=== PATIENT | female | born 1995 | race Two or more races ===

== ENCOUNTER 2017-09-23 21:41 | Emergency (ER) | payer OTHER ==
[2017-09-23] MEDS ORDERED: diphenhydrAMINE INJ 50 MG/ML VIAL IVP STA (22:49)
[2017-09-23] MEDS ORDERED: SODIUM CHLORIDE 0.9% 1,000 ML IV ONE (22:49)
[2017-09-23] MEDS ORDERED: KETOROLAC 60 MG/2 ML VIAL IVP STA (22:49)
[2017-09-23] MEDS ORDERED: METOCLOPRAMIDE 10 MG/2 ML VIAL IVP STA (22:49)
[2017-09-23 22:52] LABS: BILIRUBIN,URINE NEGATIVE (NEGATIVE); GLUCOSE, URINE (UA) NEGATIVE (NEGATIVE); KETONES,URINE (UA) NEGATIVE (NEGATIVE); LEUKOCYTE ESTERASE, URINE NEGATIVE (NEGATIVE); NITRITE,URINE NEGATIVE (NEGATIVE); OCCULT BLOOD,URINE NEGATIVE (NEGATIVE); PROTEIN,URINE NEGATIVE (NEGATIVE); UROBILINOGEN,URINE 1 (NORMAL) E.U./dL (NORMAL)
[2017-09-23 22:53] LABS: CLARITY,URINE CLEAR (CLEAR)
[2017-09-23 22:55] LABS: HCG UR QUAL NEGATIVE
[2017-09-23 23:43] LABS: BASOPHILS % (AUTO) 0.3 %; EOSINOPHILS # (AUTO) 0.1 10^3/uL (0.0-0.7); EOSINOPHILS % (AUTO) 2.1 %; HGB - HEMOGLOBIN 13.2 g/dL (12.0-16.0); LYMPHOCYTES # (AUTO) 1.8 10^3/uL (1.5-3.5); LYMPHOCYTES % (AUTO) 27.4 %; MEAN CORPUSCULAR HEMOGLOBIN 30.7 pg (27.0-31.0); MEAN CORPUSCULAR HGB CONC 33.6 g/dL (32.0-36.0); MEAN CORPUSCULAR VOLUME 91.4 fL (81.0-99.0); MEAN PLATELET VOLUME 8.4 fL (7.9-10.8); MONOCYTES # (AUTO) 0.5 10^3/uL (0.0-1.0); MONOCYTES % (AUTO) 7.4 %; NEUTROPHILS # (AUTO) 4.2 10^3/uL (1.5-6.6); NEUTROPHILS % (AUTO) 62.8 %; PLT - PLATELET COUNT 218 10^3/uL (130-450); WHITE BLOOD COUNT 6.7 x10^3/uL (4.8-10.8)
[2017-09-23 23:48] LABS: ALBUMIN 4.2 g/dL (3.2-5.5); ALBUMIN/GLOBULIN RATIO 1.3 (1.0-2.2); BILIRUBIN,TOTAL 0.7 mg/dL (0.2-1.0); CREATININE 0.6 mg/dL (0.4-1.0); TOTAL PROTEIN 7.5 g/dL (6.7-8.2)
--- NOTE | 2017-09-24 00:02 | ED Physician Documentation ---
PD HPI HEADACHE - Stated complaint Stated Complaint: HEADACHE - Chief complaint Chief Complaint: Neuro - History obtained from History obtained from: Patient, Friend - History of Present Illness Timing - onset: Yesterday Timing - details: Gradual onset, Still present Quality: Aching Associated symptoms: Nausea. No: Vomiting Worsened by: Light Similar symptoms before: Has not had sx before Recently seen: Not recently seen - Additional information Additional information: patient is a 22 year old female with no significant past medical history who is presenting to the emergency department for congestion, headach, dizziness and nausea. Patient also states that she had a syncopal episode. patient reports that she feels like she is not really sick, but thinks that she is going to get sick. Review of Systems Constitutional: denies: Fever, Chills, Myalgias Eyes: reports: Photophobia Ears: denies: Ear pain, Drainage/discharge Nose: reports: Rhinorrhea / runny nose, Congestion, Sinus pressure / pain Throat: reports: Sore throat Cardiac: denies: Chest pain / pressure, Palpitations Respiratory: denies: Dyspnea, Cough, Wheezing GI: reports: Nausea. denies: Vomiting : reports: Reviewed and negative Skin: denies: Rash Musculoskeletal: denies: Neck pain, Back pain Neurologic: reports: Generalized weakness. denies: Focal weakness, Numbness Immunocompromised: denies: Immunocompromised PD PAST MEDICAL HISTORY - Past Medical History Past Medical History: No - Past Surgical History Past Surgical History: No - Present Medications Home Medications: Ambulatory Orders Medication Instructions Recorded Confirmed Cetirizine HCl/Pseudoephedrine 1 each PO BID #14 tab.er.12h 09/24/17 [Zyrtec-D Tablet] Ondansetron Odt [Zofran] 4 mg TL Q6H PRN #14 tablet 09/24/17 - Allergies Allergies/Adverse Reactions: Allergies Allergy/AdvReac Type Severity Reaction Status Date / Time No Known Drug Allergies Allergy Verified 09/23/17 22:10 - Social History Does the pt smoke?: No Smoking Status: Never smoker Does the pt drink ETOH?: No Does the pt have substance abuse?: No - Immunizations Immunizations are current?: Yes - POLST Patient has POLST: No PD ED PE NORMAL - Vitals Vital signs reviewed: Yes - General General: Alert and oriented X 3, No acute distress, Well developed/nourished - HEENT HEENT: Atraumatic, PERRL, Ears normal, Moist mucous membranes, Dentition benign - Cardiac Cardiac: RRR, No murmur - Respiratory Respiratory: No respiratory distress - Abdomen Abdomen: Soft, Non tender - Derm Derm: Normal color, Warm and dry, No rash - Extremities Extremities: No deformity - Neuro Neuro: Alert and oriented X 3, clam dredger 2-12 intact, No motor deficit, No sensory deficit, Normal speech Eye Opening: Spontaneous Motor: Obeys Commands Verbal: Oriented GCS Score: 15 - Psych Psych: Normal mood PD ED PE EXPANDED - HEENT HEENT: Nasal congestion Results - Vitals Vitals: Vital Signs - 24 hr 09/23/17 22:03 Temperature 36.3 C L Heart Rate 89 Respiratory 17 Rate Blood Pressure 133/79 H O2 Saturation 100 Oxygen O2 Source Room air - EKG (time done) 2236 Rate: Rate (enter#) (87) Rhythm: NSR [place]: Normal Intervals: Normal [place] QRS: Normal Ischemia: ST elevation c/w repol Computer interpretation: Disagree with computer - Labs Labs: Laboratory Tests 09/23/17 09/23/17 09/23/17 22:40 23:20 23:20 WBC 6.7 RBC 4.30 Hgb 13.2 Hct 39.3 MCV 91.4 MCH 30.7 MCHC 33.6 RDW 13.0 Plt Count 218 MPV 8.4 Neut # (Auto) 4.2 Lymph # (Auto) 1.8 [place] # (Auto) 0.5 Eos # (Auto) 0.1 Baso # (Auto) 0.0 Absolute Nucleated RBC 0.00 Nucleated RBC % 0.0 Sodium 138 Potassium 4.0 Chloride 104 Carbon Dioxide 26 Anion Gap 8.0 BUN 18 Creatinine 0.6 Estimated GFR (MDRD) 126 Glucose 107 H Calcium 9.0 Total Bilirubin 0.7 AST 16 ALT 14 Alkaline Phosphatase 72 Total Protein 7.5 Albumin 4.2 Globulin 3.3 Albumin/Globulin Ratio 1.3 Lipase 22 Urine Color YELLOW Urine Clarity CLEAR Urine pH 6.0 Ur Specific [place] >=1.030 H Urine Protein NEGATIVE Urine Glucose (UA) NEGATIVE Urine Ketones NEGATIVE Urine Occult Blood NEGATIVE Urine Nitrite NEGATIVE Urine Bilirubin NEGATIVE Urine Urobilinogen 1 (NORMAL) Ur Leukocyte Esterase NEGATIVE Ur Microscopic Review NOT INDICATED Urine Culture Comments NOT INDICATED Urine HCG, Qual NEGATIVE PD MEDICAL DECISION MAKING - ED course Complexity details: reviewed old records, reviewed results, re-evaluated patient , considered differential, d/w patient ED course: patient was seen and examined at bedside. patient was well appearing and in no distress. ekg was performed and showed ALLEN. IV access was gained and labs were drawn. Patient was treated with a fluid bolus, toradol, reglan and benadryl. patient was non toxic and well appearing. patient's diagnostics were all within normal limits. patient required no further work up and was stable for discharge with outpatient follow up. - Sepsis Event Vital Signs: Vital Signs - 24 hr 09/23/17 22:03 Temperature 36.3 C L Heart Rate 89 Respiratory 17 Rate Blood Pressure 133/79 H O2 Saturation 100 Oxygen O2 Source Room air Departure - Departure Disposition: 01 Home, Self Care Clinical Impression: Allergic rhinitis Condition: Good Instructions: ED Allergy Seasonal Follow-Up: Tammie Gauthier MD [Primary Care Provider] - Prescriptions: Cetirizine HCl/Pseudoephedrine [Zyrtec-D Tablet] 1 each PO BID #14 tab.er.12h Ondansetron Odt [Zofran] 4 mg TL Q6H PRN #14 tablet PRN Reason: Nausea / Vomiting Comments: Your diagnostics today were within normal limits. there are no acute abnormalities. Your symptoms are likely allergic in nature. You have been precribed an allergy medicine as well as a nausea medication. it is important to stay well hydrated and get plenty of rest. You should follow up with your doctor if your symptoms persist. You may return to the emergency department at any time for new, worsening or uncontrollable symptoms. Forms: Activity restrictions
[2017-09-24 00:04] VITALS: BP 115/74
== END 2017-09-24 00:21 | disposition home or self-care (01) ==
LOC: ED 21:41
DX: J30.9 Allergic rhinitis, unspecified (principal)
CPT/HCPCS: 36415; 80053; 81003; 81025; 83690; 85025; 93005; 96374; 96375; 99283; J1200; J2765; 81001; 87086

== ENCOUNTER 2018-02-25 18:23 | Emergency (ER) | payer OTHER ==
[2018-02-25 20:57] LABS: HCG UR QUAL NEGATIVE
--- NOTE | 2018-02-25 21:19 | ED Physician Documentation ---
PD HPI HEAD INJURY - Stated complaint Stated Complaint: HD PX - Chief complaint Chief Complaint: Trauma Hd/Nk - History obtained from History obtained from: Patient - History of Present Illness Mechanism of head injury: Blow Where head injury occurred: Home Timing - onset: How many hours ago (2) Pain level now: 8 Location of injury: Top Quality of pain: Throbbing Associated symptoms: No: LOC, AMS, Amnesia, Nausea / vomiting, Neck pain, Paresthesias, Seizures Symptoms improve with: Nothing Symptoms worsen with: Other (nothing) Contributing factors: No: Anticoagulated, Intoxicated Similar symptoms before: Has not had sx before Recently seen: Not recently seen - Additional information Additional information: 23-year-old female with no past medical or surgical history here with complain of a headache after a 2 pound ceramic figuring fell on her head about 5:30 PM today. She denies losing consciousness but is currently having a headache And ringing in her ears. Denies any nausea or vomiting. Review of Systems Ten Systems: 10 systems reviewed and negative Constitutional: denies: Fever Ears: reports: Tinnitus/ringing. denies: Ear pain Nose: denies: Congestion GI: denies: Nausea, Vomiting Skin: denies: Laceration (s) Neurologic: reports: Headache, Head injury. denies: Focal weakness, Confused, LOC PD PAST MEDICAL HISTORY - Past Medical History Past Medical History: No - Past Surgical History Past Surgical History: Yes - Present Medications Home Medications: Ambulatory Orders Medication Instructions Recorded Confirmed Cetirizine HCl/Pseudoephedrine 1 each PO BID #14 tab.er.12h 09/24/17 [Zyrtec-D Tablet] Ondansetron Odt [Zofran] 4 mg TL Q6H PRN #14 tablet 09/24/17 - Allergies Allergies/Adverse Reactions: Allergies Allergy/AdvReac Type Severity Reaction Status Date / Time No Known Drug Allergies Allergy Verified 02/25/18 18:37 - Social History Does the pt smoke?: No Smoking Status: Never smoker Does the pt drink ETOH?: No Does the pt have substance abuse?: No - Immunizations Immunizations are current?: Yes - POLST Patient has POLST: No PD ED PE NORMAL - Vitals Vital signs reviewed: Yes - General General: Alert and oriented X 3, No acute distress, Well developed/nourished - HEENT HEENT: Atraumatic, PERRL, EOMI, Ears normal, Moist mucous membranes, Pharynx benign - Neck Neck: Supple, no meningeal sign, No bony TTP - Cardiac Cardiac: RRR, No murmur - Respiratory Respiratory: No respiratory distress, Clear bilaterally - Abdomen Abdomen: Normal bowel sounds, Soft, Non tender, Non distended - Back Back: No CVA TTP, No spinal TTP - Derm Derm: Normal color, Warm and dry - Extremities Extremities: No deformity, Normal ROM s pain, Other (Ambulatory with steady gait.) - Neuro Neuro: Alert and oriented X 3, stitching machine feeder or offbearer 2-12 intact, No motor deficit, No sensory deficit, Normal speech Eye Opening: Spontaneous Motor: Obeys Commands Verbal: Oriented GCS Score: 15 - Psych Psych: Normal mood, Normal affect Results - Vitals Vitals: Vital Signs - 24 hr 02/25/18 18:32 Temperature 36.9 C Heart Rate 100 Respiratory 16 Rate Blood Pressure 126/81 H O2 Saturation 98 Oxygen O2 Source Room air - Labs Labs: Laboratory Tests 02/25/18 20:45 Ur Specific [place] >=1.030 H Urine HCG, Qual NEGATIVE PD MEDICAL DECISION MAKING - ED course Complexity details: re-evaluated patient (2114 patient informed she is not and CT head was already ordered. Patient ambulatory but patient stated that she wants to go home as she is feeling tired. She refused to wait for the CT head scan nor take any pain medication here. She understood risk of signing AGAINST MEDICAL ADVICE. Was encouraged to return if worse.), considered differential (Concussion, closed head injury, intracranial bleed, subdural,Subarachnoid hemorrhage.), d/w patient Departure - Departure Disposition: 07 Against Medical Advice Clinical Impression: Concussion Qualifiers: Encounter type: initial encounter Loss of consciousness presence/duration: without LOC Qualified Code(s): S06.0X0A - Concussion without loss of consciousness, initial encounter Closed head injury Qualifiers: Encounter type: initial encounter Qualified Code(s): S09.90XA - Unspecified injury of head, initial encounter Condition: Stable Comments: Patient signed the AMA form and left without any discharge instruction. She was instructed to return to the emergency room if worse.
[2018-02-25 21:20] VITALS: BP 128/76
== END 2018-02-25 21:18 | disposition left against medical advice (07) ==
LOC: ED 18:23
DX: S06.0X0A Concussion without loss of consciousness, initial encounter (principal); W22.8XXA Striking against or struck by other objects, initial encounter; Z53.29 Procedure and treatment not carried out because of patient's decision for other reasons
CPT/HCPCS: 81025; 99283

== ENCOUNTER 2018-10-28 12:39 | Emergency (ER) | payer OTHER ==
[2018-10-28 12:46] VITALS: BP 128/90
[2018-10-28 13:07] LABS: BASOPHILS % (AUTO) 0.4 %; EOSINOPHILS # (AUTO) 0.1 10^3/uL (0.0-0.7); EOSINOPHILS % (AUTO) 2.4 %; HGB - HEMOGLOBIN 12.9 g/dL (12.0-16.0); LYMPHOCYTES # (AUTO) 1.5 10^3/uL (1.5-3.5); LYMPHOCYTES % (AUTO) 30.7 %; MEAN CORPUSCULAR HEMOGLOBIN 28.7 pg (27.0-31.0); MEAN CORPUSCULAR HGB CONC 31.5 g/dL (32.0-36.0); MEAN CORPUSCULAR VOLUME 91.1 fL (81.0-99.0); MEAN PLATELET VOLUME 9.9 fL (7.9-10.8); MONOCYTES # (AUTO) 0.4 10^3/uL (0.0-1.0); MONOCYTES % (AUTO) 8.6 %; NEUTROPHILS # (AUTO) 2.9 10^3/uL (1.5-6.6); NEUTROPHILS % (AUTO) 57.7 %; PLT - PLATELET COUNT 230 10^3/uL (130-450); RED CELL DISTRIBUTION WIDTH 12.8 % (12.0-15.0)
--- NOTE | 2018-10-28 13:10 | ED Physician Documentation ---
PD HPI NVD - Stated complaint Stated Complaint: N/V/D - Chief complaint Chief Complaint: Abd Pain - History obtained from History obtained from: Patient - History of Present Illness Timing - onset: Yesterday (Started with N/V/D yesterday. Chills. Diarrhea 5-6 times/day. No abd pain. Mult sick contacts with similar.) Review of Systems Constitutional: reports: Chills. denies: Fever Eyes: reports: Reviewed and negative Cardiac: reports: Reviewed and negative Respiratory: reports: Reviewed and negative GI: reports: Nausea, Vomiting, Diarrhea. denies: Abdominal Pain, Abdominal Swelling PD PAST MEDICAL HISTORY - Past Surgical History Past Surgical History: Yes - Present Medications Home Medications: Ambulatory Orders Medication Instructions Recorded Confirmed Ondansetron Odt [Zofran] 4 mg TL Q6H PRN #14 tablet 09/24/17 RX: Cetirizine HCl/Pseudoephedrine 1 each PO BID #14 tab.er.12h 09/24/17 [Zyrtec-D Tablet] Loperamide [Imodium] 2 mg PO QID PRN #10 capsule 10/28/18 Ondansetron Odt [Zofran] 4 mg TL Q6H PRN #10 tablet 10/28/18 - Allergies Allergies/Adverse Reactions: Allergies Allergy/AdvReac Type Severity Reaction Status Date / Time No Known Drug Allergies Allergy Verified 02/25/18 18:37 - Social History Does the pt smoke?: No Smoking Status: Never smoker Does the pt drink ETOH?: No Does the pt have substance abuse?: No - Immunizations Immunizations are current?: Yes - POLST Patient has POLST: No PD ED PE NORMAL - Vitals Vital signs reviewed: Yes - General General: Alert and oriented X 3, No acute distress - HEENT HEENT: Moist mucous membranes - Abdomen Abdomen: Normal bowel sounds, Soft, Non tender - Neuro Neuro: Alert and oriented X 3, Normal speech Results - Vitals Vitals: Vital Signs - 24 hr 10/28/18 12:43 Temperature 36.4 C L Heart Rate 82 Respiratory 14 Rate Blood Pressure 128/90 H O2 Saturation 100 Oxygen O2 Source Room air - Labs Labs: Laboratory Tests 10/28/18 10/28/18 13:02 13:02 WBC 5.0 RBC 4.50 Hgb 12.9 Hct 41.0 MCV 91.1 MCH 28.7 MCHC 31.5 L RDW 12.8 Plt Count 230 MPV 9.9 Neut # (Auto) 2.9 Lymph # (Auto) 1.5 [place] # (Auto) 0.4 Eos # (Auto) 0.1 Baso # (Auto) 0.0 Absolute Nucleated RBC 0.00 Nucleated RBC % 0.0 Sodium 141 Potassium 4.2 Chloride 103 Carbon Dioxide 24 Anion Gap 14.0 H BUN 14 Creatinine 0.7 Estimated GFR (MDRD) 105 Glucose 105 H Calcium 9.3 Total Bilirubin 0.8 AST 15 ALT 15 Alkaline Phosphatase 69 Total Protein 7.7 Albumin 4.3 Globulin 3.4 Albumin/Globulin Ratio 1.3 Lipase 25 PD MEDICAL DECISION MAKING - ED course ED course: This young woman with clinical viral gastroenteritis with multiple sick contacts with same. She was on a det on the boat, but it did not go into port anywhere. She denies fevers or abdominal pain, her exam is benign. She is treated with oral Zofran and Imodium. Departure - Departure Disposition: 01 Home, Self Care Clinical Impression: Gastroenteritis Condition: Good Record reviewed to determine appropriate education?: Yes Instructions: ED Gastroenteritis Viral Prescriptions: Loperamide [Imodium] 2 mg PO QID PRN #10 capsule PRN Reason: Diarrhea Ondansetron Odt [Zofran] 4 mg TL Q6H PRN #10 tablet PRN Reason: Nausea / Vomiting Comments: As discussed, you should be better by this time tomorrow. Return if worse or if you develop pain or high fever. Or if not better in that timeframe. Forms: Activity restrictions Discharge Date/Time: 10/28/18 13:24
[2018-10-28] MEDS ORDERED: LOPERAMIDE 2 MG CAPSULE PO STA (13:11)
[2018-10-28] MEDS ORDERED: ONDANSETRON ODT 4 MG TABLET TL STA (13:11)
[2018-10-28 13:36] LABS: CREATININE 0.7 mg/dL (0.4-1.0)
[2018-10-28 13:37] LABS: ALBUMIN 4.3 g/dL (3.2-5.5); ALBUMIN/GLOBULIN RATIO 1.3 (1.0-2.2); BILIRUBIN,TOTAL 0.8 mg/dL (0.2-1.0); CALCIUM 9.3 mg/dL (8.5-10.3); TOTAL PROTEIN 7.7 g/dL (6.7-8.2)
== END 2018-10-28 13:24 | disposition home or self-care (01) ==
LOC: ED 12:39
DX: A08.4 Viral intestinal infection, unspecified (principal)
CPT/HCPCS: 36415; 80053; 83690; 85025; 99283; A9270; Q0162; 81001; 81003; 81025; 87086

== ENCOUNTER 2018-11-25 15:09 | Emergency (ER) | payer OTHER ==
[2018-11-25] MEDS ORDERED: SODIUM CHLORIDE 0.9% 1,000 ML IV ONE (15:44)
[2018-11-25] MEDS ORDERED: DEXAMETHASONE 10 MG/ML VIAL IVP STA (15:44)
[2018-11-25] MEDS ORDERED: diphenhydrAMINE INJ 50 MG/ML VIAL IVP STA (15:44)
[2018-11-25] MEDS ORDERED: PROCHLORPERAZINE 10 MG/2 ML VIAL IVP STA (15:44)
[2018-11-25] MEDS ORDERED: KETOROLAC 30 MG/ML VIAL IVP STA (15:44)
--- NOTE | 2018-11-25 15:47 | ED Physician Documentation ---
PD HPI HEADACHE - Stated complaint Stated Complaint: MIGRAINE/TOE PAIN - Chief complaint Chief Complaint: Neuro - History obtained from History obtained from: Patient - History of Present Illness Timing - onset: How many days ago (2) Timing - onset during: Rest Timing - duration: Days (2) Timing - details: Gradual onset, Still present Worst headache ever?: No: Worst headache ever? Location: Right Quality: Throbbing Associated symptoms: Nausea, Vision changes. No: Fever, Stiff neck, Vomiting, Weakness, Numbness, Syncope, Seizure, Eye pain Improved by: Rest, Dark room Worsened by: Light, Noise, Moving Contributing factors: No: Anticoagulated Similar symptoms before: Diagnosis (migraine) Recently seen: Not recently seen - Additional information Additional information: 23-year-old female has a prior history of migraine with a high frequency and she has not had migraines for about 2 years. She has developed a migraine beginning yesterday afternoon and she is come to the emergency department now for treatment. She does have some nausea she has not had any vomiting she does not usually have to come into the emergency department for rescue as she previously has had some medications for abortive effect. Review of Systems Constitutional: denies: Fever, Chills Eyes: denies: Decreased vision Ears: denies: Ear pain Nose: reports: Congestion. denies: Rhinorrhea / runny nose Throat: denies: Sore throat Cardiac: denies: Chest pain / pressure, Palpitations Respiratory: denies: Dyspnea, Cough GI: reports: Nausea. denies: Abdominal Pain, Vomiting : denies: Dysuria, Frequency Skin: denies: Rash Musculoskeletal: denies: Neck pain, Back pain, Extremity pain Neurologic: reports: Headache. denies: Focal weakness, Head injury, LOC PD PAST MEDICAL HISTORY - Past Surgical History Past Surgical History: Yes - Present Medications Home Medications: Ambulatory Orders Medication Instructions Recorded Confirmed Ondansetron Odt [Zofran] 4 mg TL Q6H PRN #14 tablet 09/24/17 RX: Cetirizine HCl/Pseudoephedrine 1 each PO BID #14 tab.er.12h 09/24/17 [Zyrtec-D Tablet] Loperamide [Imodium] 2 mg PO QID PRN #10 capsule 10/28/18 Ondansetron Odt [Zofran] 4 mg TL Q6H PRN #10 tablet 10/28/18 - Allergies Allergies/Adverse Reactions: Allergies Allergy/AdvReac Type Severity Reaction Status Date / Time No Known Drug Allergies Allergy Verified 02/25/18 18:37 - Social History Does the pt smoke?: No Smoking Status: Never smoker Does the pt drink ETOH?: No Does the pt have substance abuse?: No - Immunizations Immunizations are current?: Yes - POLST Patient has POLST: No PD ED PE NORMAL - Vitals Vital signs reviewed: Yes (hypertensive ) - General General: Alert and oriented X 3, No acute distress, Well developed/nourished - HEENT HEENT: Atraumatic, PERRL, EOMI, Other (mild central inflamation to the umbo with rounding of the umbo ) - Neck Neck: Supple, no meningeal sign, No bony TTP - Cardiac Cardiac: RRR, No murmur - Respiratory Respiratory: No respiratory distress, Clear bilaterally - Abdomen Abdomen: Soft, Non tender - Back Back: No CVA TTP, No spinal TTP - Derm Derm: Normal color, Warm and dry, No rash - Extremities Extremities: No deformity, No edema - Neuro Neuro: Alert and oriented X 3, button puncher 2-12 intact, No motor deficit, No sensory deficit, Normal speech Eye Opening: Spontaneous Motor: Obeys Commands Verbal: Oriented GCS Score: 15 - Psych Psych: Normal mood, Normal affect Results - Vitals Vitals: Vital Signs - 24 hr 11/25/18 11/25/18 11/25/18 15:25 16:56 17:06 Temperature 36.5 C 36.2 C L 36.2 C L Heart Rate 100 95 86 Respiratory 14 18 17 Rate Blood Pressure 131/82 H 128/81 H 128/81 H O2 Saturation 100 100 98 Oxygen O2 Source Room air PD MEDICAL DECISION MAKING - ED course Complexity details: re-evaluated patient, considered differential, d/w patient ED course: 23-year-old female with a history of migraines has a migraine on the right side and she is administered a migraine cocktail consisting of a liter of saline 30 mg of Toradol intravenously Decadron 10 mg intravenously Compazine 10 mg intravenously and Benadryl 25 mg intravenously. Symptoms much improved. Departure - Departure Disposition: 01 Home, Self Care Clinical Impression: Migraine Condition: Stable Instructions: ED Headache Migraine Follow-Up: [facility] Jonest[facility] Calloway [Provider Group] Forms: Activity restrictions Discharge Date/Time: 11/25/18 17:06
[2018-11-25 16:56] VITALS: BP 128/81
== END 2018-11-25 17:06 | disposition home or self-care (01) ==
LOC: ED 15:09
DX: G43.909 Migraine, unspecified, not intractable, without status migrainosus (principal)
CPT/HCPCS: 96361; 96374; 96375; 99284; 99285; J1200

== ENCOUNTER 2019-04-10 02:54 | Emergency (ER) | payer OTHER ==
--- NOTE | 2019-04-10 03:40 | ED Physician Documentation ---
History of Present Illness - Stated complaint Stated Complaint: V/D/EAR PX - Chief complaint Chief Complaint: Abd Pain - History obtained from History obtained from: Patient - History of Present Illness Timing: Today - Additonal information Additional information: This is a 24-year-old presents with complaints that she is had vomiting and diarrhea with stopping stomach cramping for the past 12 hours. She did not eat anything that she thinks may have made her sick her last emesis was 2 hours ago.She came in tonight because she woke up and had cold sweats. She has not had a fever. She was little lightheaded but did not pass out. She had been visiting a friend who had a virus but said that she was better. She is had a little nasal congestion but no sore throat no coughing and denies stating her last menstrual period was 2 weeks ago. She is in the [place]. Review of Systems Constitutional: reports: Sweats. denies: Fever Ears: denies: Ear pain Nose: reports: Congestion Throat: denies: Sore throat Respiratory: denies: Cough GI: reports: Abdominal Pain, Nausea, Vomiting, Diarrhea : denies: Dysuria, Now EGA PD PAST MEDICAL HISTORY - Past Medical History Past Medical History: No Cardiovascular: None Respiratory: None Neuro: None Endocrine/Autoimmune: None GI: None DIETITIAN HELPER: None : None HEENT: None Psych: None Musculoskeletal: None Derm: None - Past Surgical History Past Surgical History: Yes - Present Medications Home Medications: Ambulatory Orders Medication Instructions Recorded Confirmed Cetirizine HCl/Pseudoephedrine 1 each PO BID #14 tab.er.12h 09/24/17 [Zyrtec-D Tablet] Ondansetron Odt [Zofran] 4 mg TL Q6H PRN #14 tablet 09/24/17 Loperamide [Imodium] 2 mg PO QID PRN #10 capsule 10/28/18 Ondansetron Odt [Zofran] 4 mg TL Q6H PRN #10 tablet 10/28/18 - Allergies Allergies/Adverse Reactions: Allergies Allergy/AdvReac Type Severity Reaction Status Date / Time No Known Drug Allergies Allergy Verified 04/10/19 03:03 - Social History Does the pt smoke?: No Smoking Status: Never smoker Does the pt drink ETOH?: No Does the pt have substance abuse?: No - Immunizations Immunizations are current?: Yes - POLST Patient has POLST: No PD ED PE NORMAL - Vitals Vital signs reviewed: Yes - General General: Alert and oriented X 3, No acute distress, Well developed/nourished - HEENT HEENT: Atraumatic, PERRL, EOMI, Moist mucous membranes, Pharynx benign, Other (No scleral icterus) - Neck Neck: No adenopathy - Cardiac Cardiac: RRR, No murmur, Strong equal pulses - Respiratory Respiratory: No respiratory distress, Clear bilaterally - Abdomen Abdomen: Normal bowel sounds, Soft, Non tender, Non distended, No organomegaly - Neuro Neuro: Alert and oriented X 3, hide puller 2-12 intact, No motor deficit, No sensory deficit, Normal speech Results - Vitals Vitals: Vital Signs - 24 hr 04/10/19 04/10/19 04/10/19 03:01 03:50 04:09 Temperature 367.5 C H Heart Rate 84 Respiratory 16 17 16 Rate Blood Pressure 124/93 H O2 Saturation 100 Oxygen O2 Source Room air - Labs Labs: Laboratory Tests 04/10/19 04:00 Urine Color YELLOW Urine Clarity CLEAR Urine pH 6.5 Ur Specific [place] 1.025 Urine Protein NEGATIVE Urine Glucose (UA) NEGATIVE Urine Ketones NEGATIVE Urine Occult Blood NEGATIVE Urine Nitrite NEGATIVE Urine Bilirubin NEGATIVE Urine Urobilinogen 1 (NORMAL) Ur Leukocyte Esterase NEGATIVE Ur Microscopic Review NOT INDICATED Urine Culture Comments NOT INDICATED Urine HCG, Qual NEGATIVE PD MEDICAL DECISION MAKING - ED course Complexity details: reviewed results, d/w patient ED course: Urinalysis is negative and she is not . She does not have a surgical abdomen. She was able to tolerate ice chips here. She will be discharged with a prepack of Zofran and encouraged to slowly advance her diet. Of note, the patient's triage temperature is containing an additional digit. She is not febrile currently. Departure - Departure Disposition: 01 Home, Self Care Clinical Impression: Vomiting Qualifiers: Vomiting type: unspecified Vomiting Intractability: non-intractable Nausea presence: with nausea Qualified Code(s): R11.2 - Nausea with vomiting, unspecified Diarrhea Qualifiers: Diarrhea type: unspecified type Qualified Code(s): R19.7 - Diarrhea, unspecified Condition: Good Instructions: ED Diet Vomiting Diarrhea Follow-Up: [facility] Calloway [Provider Group] Comments: Slowly advance her diet. You have been discharged with Zofran that you can use if you feel nauseous or are still vomiting. It dissolves in her mouth. Push fluids to rehydrate yourself. Follow-up if you have increasing abdominal pain particularly if it settles into the right lower quadrant, you develop a fever or continued vomiting and cannot keep anything down. Forms: Activity restrictions
[2019-04-10 04:05] LABS: BILIRUBIN,URINE NEGATIVE (NEGATIVE); GLUCOSE, URINE (UA) NEGATIVE (NEGATIVE); KETONES,URINE (UA) NEGATIVE (NEGATIVE); LEUKOCYTE ESTERASE, URINE NEGATIVE (NEGATIVE); NITRITE,URINE NEGATIVE (NEGATIVE); OCCULT BLOOD,URINE NEGATIVE (NEGATIVE); PH,URINE 6.5 PH (5.0-7.5); PROTEIN,URINE NEGATIVE (NEGATIVE); UROBILINOGEN,URINE 1 (NORMAL) E.U./dL (NORMAL)
[2019-04-10 04:07] LABS: CLARITY,URINE CLEAR (CLEAR); HCG UR QUAL NEGATIVE
[2019-04-10] MEDS ORDERED: ONDANSETRON ODT 4 MG Prepack 2 TL PRN (04:55)
[2019-04-10 05:10] VITALS: BP 132/103
== END 2019-04-10 05:25 | disposition home or self-care (01) ==
LOC: ED 02:54
DX: R11.2 Nausea with vomiting, unspecified (principal); R19.7 Diarrhea, unspecified; R10.9 Unspecified abdominal pain
CPT/HCPCS: 81001; 81003; 81025; 87086; 99283; 99284